=== PATIENT | male | born 1990 | race Caucasian/White ===

== ENCOUNTER 2017-09-21 21:42 | Inpatient (IN) ==
[2017-09-21] MEDS ORDERED: 0.9 % Sodium Chloride 1,000 ML IVC ONE (22:04)
[2017-09-21] MEDS ORDERED: Vancomycin 1,000 MG VIAL IVPB ONE (22:04)
[2017-09-21] MEDS ORDERED: *HR* HYDROmorphone (PF) 1 MG/ML SYRINGE IVP ONE (22:04)
[2017-09-21] MEDS ORDERED: ceFAZolin 1,000 MG in Water for inj. (sterile) 20 ML 10 ML IVP ONE (22:04)
--- NOTE | 2017-09-21 22:10 | Emergency Department Note ---
Disposition Clinical Impression: Tenosynovitis of fingers Abscess of skin or subcutaneous tissue Qualifiers: Site of cutaneous abscess: extremity Site of cutaneous abscess of extremity: hand Laterality: right Qualified Code(s): L02.511 - Cutaneous abscess of right hand Disposition: Still a Patient Condition: Fair Referrals: Rachel Pa MD [Primary Care Provider] - Forms: ED Satisfaction Letter Time of Disposition: 22:45 General Adult HPI - General Chief complaint: ED Skin/Abscess/Foreign Body Stated complaint: states shot of herion in rt hand, now has abscess Time Seen by Provider: 09/21/17 21:58 Source: patient Limitations: no limitations Nursing Notes Reviewed: Yes Vital Signs Reviewed: Yes - History of Present Illness HPI Narrative: History of present illness: 26-year-old male active heroin IV drug user who states he is ambidextrous, states he shot up on the dorsum of his right hand 2 days ago noticed he had swelling redness and pain with limited range of motion of his fingers. Feels like he has had low-grade fever or chills. He also noticed on his left bicipital area he had some firmness and redness but he upon repeated questioning says he has not shot up in that area. Patient says he has hepatitis C that was about 2 years ago is currently not taking any medicines and he tested negative for HIV. Denies chest pain or shortness of breath palpitations nausea vomiting chills diarrhea. Patient's pain is about a 6 or 7 out of 10. Pain Scale: 8 - Related Data Previous Rx's Medication Instructions Recorded Amoxicillin 875 mg PO BID #20 tablet 08/02/16 Ibuprofen [Motrin] 800 mg PO Q8HR PRN #30 tablet 08/02/16 Erythromycin OPTH Oint 0.5 inch LEFT EYE QID 7 Days tube 03/31/17 Mupirocin [Bactroban Oint] 1 appl TP BID 7 Days tube 03/31/17 Sulfamethoxazole/Trimeth DS 1 each PO BID #14 tablet 03/31/17 [Bactrim DS] Allergies Allergy/AdvReac Type Severity Reaction Status Date / Time Cefaclor [From [facility] Allergy See Verified 09/21/17 21:50 Comments All systems ED: reviewed and negative except as stated. Constitutional: Reports: fever, chills Musculoskeletal: Reports: arthralgia, myalgia (Pain in the dorsum of his right hand with swelling and decreased ability to flex his fingers or extend them) Past Medical History - Past Medical History Attestation: Yes The following information was validated with the patient. Source: patient Medical history: Reports: hepatitis (C) Psychiatric history: Reports: no psych history - Social History Smoking Status: Current every day smoker Smokeless Tobacco Status: No Alcohol use: Reports: none Drug use: Reports: opiates, IV Drug Use Physical Exam - General Limitations: no limitations General appearance: alert, in distress - Head Head exam: atraumatic, normocephalic - Eye Eye exam: Present: normal appearance, PERRL - ENT ENT exam: other (Teeth in poor state of generalized dental decay) - Neck Neck exam: Present: normal inspection, full ROM - Chest Chest inspection: Present: normal inspection, symmetric chest wall rise - Respiratory Respiratory exam: Present: normal lung sounds bilaterally - Cardiovascular Cardiovascular exam: Present: normal rhythm, tachycardia - Abdominal Exam Abdominal exam: Present: soft, Non-Tender - Extremities Exam Extremities exam: Present: tenderness (With erythema on the dorsum of the right hand over the entire dorsum of the right hand, and on the left distal anterior bicipital area with induration and erythema) - Expanded Upper Extremity Exam Shoulder exam: Present: normal inspection, full ROM Arm exam: Present: tenderness (Left bicep distally), erythema Elbow exam: Present: other (SMALL FURUNCLE ON LEFT ELBOW) Forearm/Wrist exam: Present: tenderness, swelling Hand exam: Present: tenderness, swelling, erythema, other (Fingers held in flexed position pain with either extension or flexion. Refill less than 2 seconds) Neurosensory exam: Normal: radial nerve, ulnar nerve - Expanded Lower Extremity Exam Gait: observed and normal - Neurological Exam Neurological exam: Present: alert, oriented X3 - Psychiatric Psychiatric exam: Present: normal mood, anxious - Skin Skin exam: Present: warm, dry, erythema Course - Reevaluation(s) Reevaluation #1: 26-year-old hepatitis C, actively IV drug using heroin dependent patient injected for smoked right hand 2 days ago and now has markedly swollen erythematous tender painful right hand with decreased significantly decreased ability to extend or flex the fingers. Examination concerning for acute Jeny synovitis secondary to heroin injection. And he has a cellulitic area in his distal anterior left bicep. Discussed the patient he will need ultrasound- guided IV he will need labs fluids medications and a CT of the upper extremity with likely hand specialty consultation and possibly washout in the operating room. Admission is highly likely or transferred. Patient understands this disposition pending. Patient does meet SIRS criteria. Providing 45 minutes of critical care services for this patient Time: 22:13 Reevaluation #2: The case with the evening team of Dr. Kimani Wall and Rajinder Chavez. They will assume care of this patient follow-up labs and imaging studies and arrange appropriate admission and/or transfer disposition. Patient so informed. Patient signed out in stable condition Time: 22:45 Vital Signs Temperature 100.6 F H 09/21/17 21:50 Pulse Rate 118 09/21/17 21:50 Respiratory Rate 20 09/21/17 21:50 Blood Pressure 147/65 09/21/17 21:50 O2 Sat by Pulse Oximetry 98 09/21/17 21:50 Temperature 100.6 F H 09/21/17 21:50 Pulse Rate 118 09/21/17 21:50 Respiratory Rate 20 09/21/17 21:50 Blood Pressure 147/65 09/21/17 21:50 O2 Sat by Pulse Oximetry 98 09/21/17 21:50 Oxygen Delivery Oxygen Delivery Room Air Medical Decision Making - Lab Data Result diagrams: 09/21/17 22:16 09/21/17 22:16 Lab Results 09/21/17 09/21/17 Range/Units 22:16 22:16 WBC 15.4 H (4.3-11.1) K/mcL RBC 5.46 (4.19-5.50) M/mcL Hgb 12.9 (12.9-16.9) g/dL Hct 40.5 (37.5-50.1) % MCV 74.2 L (83.0-100.0) fL MCH 23.6 L (28.0-33.3) pg MCHC 31.9 (31.6-35.5) g/dL RDW 13.9 (11.5-14.5) % Plt Count 226 (140-400) K/mcL MPV 9.1 L (9.4-12.4) fL Immature Gran % 0.4 (0-4) % Seg Neutrophils % 81.4 % Lymphocytes % 9.7 % Monocytes % 8.1 % Eosinophils % 0.1 % Basophils % 0.3 % Neutrophils # 12.5 H (1.6-8.9) K/mcL Lymphocytes # 1.5 (0.6-4.6) K/mcL Monocytes # 1.3 (0.0-1.3) K/mcL Eosinophils # 0.0 (0.0-0.6) K/mcL Basophils # 0.0 (0.0-0.2) K/mcL Sodium 129 L (136-145) mEq/L Potassium 3.8 (3.5-5.1) mEq/L Chloride 96 L (98-107) mEq/L Carbon Dioxide 26 (23-29) mEq/L BUN 9 (6-20) mg/dL Creatinine 0.86 (0.70-1.30) mg/dL Est GFR ( Amer) > 60 (> 60) Est GFR (Non-Af Amer) > 60 (> 60) BUN/Creatinine Ratio 10 (6-26) Glucose 142 H (70-105) mg/dL Calculated Osmolality 269 L (280-300) Calcium 9.1 (8.6-10.3) mg/dL
[2017-09-21 22:26] LABS: Basophils % 0.3 %; Eosinophils % 0.1 %; Hematocrit 40.5 % (37.5-50.1); Hemoglobin 12.9 g/dL (12.9-16.9); Immature Granulocytes % 0.4 % (0-4); Lymphocytes % 9.7 %; Mean Corpuscular HGB Conc 31.9 g/dL (31.6-35.5); Mean Corpuscular Hemoglobin 23.6 pg (28.0-33.3); Mean Corpuscular Volume 74.2 fL (83.0-100.0); Mean Platelet Volume 9.1 fL (9.4-12.4); Monocytes % 8.1 %; Platelet Count 226 K/mcL (140-400); Red Blood Count 5.46 M/mcL (4.19-5.50); Red Cell Distribution Width 13.9 % (11.5-14.5); Segmented Neutrophils % 81.4 %
[2017-09-21 22:27] LABS: Lymphocytes # 1.5 K/mcL (0.6-4.6); Monocytes # 1.3 K/mcL (0.0-1.3); Neutrophils # 12.5 K/mcL (1.6-8.9)
[2017-09-21 22:44] LABS: BUN/Creatinine Ratio 10 (6-26); Blood Urea Nitrogen 9 mg/dL (6-20); Calcium 9.1 mg/dL (8.6-10.3); Carbon Dioxide 26 mEq/L (23-29); Chloride 96 mEq/L (98-107); Glucose 142 mg/dL (70-105); Osmolality,Calculated 269 (280-300); Potassium 3.8 mEq/L (3.5-5.1); Sodium 129 mEq/L (136-145); eGFR For African Americans > 60 (> 60); eGFR For Non-African Americans > 60 (> 60)
[2017-09-21] MEDS ORDERED: CloNIDine Patch 0.3 MG PATCH (WEEKLY) TD STA (22:53)
[2017-09-21] MEDS ORDERED: Vancomycin 1,000 MG in D5% in Water 250 ML IVPB ONE (23:20)
[2017-09-21] MEDS ORDERED: D5% in Water 250 ML ONE (23:45)
[2017-09-22] MEDS ORDERED: *HR* HYDROmorphone (PF) 1 MG/ML SYRINGE IVP ONE (01:22)
--- NOTE | 2017-09-22 02:02 | Emergency Department Note ---
Disposition Clinical Impression: Cellulitis of arm Qualifiers: Laterality: right Qualified Code(s): L03.113 - Cellulitis of right upper limb Disposition: Admitted As Inpatient Condition: Fair Referrals: Rachel Pa MD [Primary Care Provider] - Forms: ED Satisfaction Letter Time of Disposition: 02:03 Skin/Abscess/FB HPI Chief complaint: ED Skin/Abscess/Foreign Body Stated complaint: states shot of herion in rt hand, now has abscess Time Seen by Provider: 09/21/17 21:58 Source: patient Limitations: no limitations Nursing Notes Reviewed: Yes Vital Signs Reviewed: Yes HPI Narrative: 26-year-old male presented with cellulitis and arm pain on the left side. This is a handoff from the day team for full history and physical please refer to Dr. Diamond's note. Previous Rx's Medication Instructions Recorded Amoxicillin 875 mg PO BID #20 tablet 08/02/16 Ibuprofen [Motrin] 800 mg PO Q8HR PRN #30 tablet 08/02/16 Erythromycin OPTH Oint 0.5 inch LEFT EYE QID 7 Days tube 03/31/17 Mupirocin [Bactroban Oint] 1 appl TP BID 7 Days tube 03/31/17 Sulfamethoxazole/Trimeth DS 1 each PO BID #14 tablet 03/31/17 [Bactrim DS] Allergies Allergy/AdvReac Type Severity Reaction Status Date / Time Cefaclor [From [facility]] Allergy See Verified 09/21/17 21:50 Comments Review of Systems: 10 point review of systems done and negative unless otherwise stated in history of present illness. All systems ED: reviewed and negative except as stated. Review of Systems: As Per HPI Constitutional: Reports: fever, chills Musculoskeletal: Reports: arthralgia, myalgia (Pain in the dorsum of his right hand with swelling and decreased ability to flex his fingers or extend them) Past Medical History - Past Medical History Attestation: Yes The following information was validated with the patient. Medical history: Reports: hepatitis (C) Psychiatric history: Reports: no psych history - Social History Smoking Status: Current every day smoker Smokeless Tobacco Status: No Alcohol use: Reports: none Drug use: Reports: opiates, IV Drug Use Physical Exam - General Limitations: no limitations General appearance: alert, in distress - Head Head exam: atraumatic, normocephalic, normal inspection - Chest Chest inspection: Present: normal inspection, symmetric chest wall rise - Respiratory Respiratory exam: Present: normal lung sounds bilaterally - Cardiovascular Cardiovascular exam: Present: regular rate, normal rhythm, normal heart sounds - Abdominal Exam Abdominal exam: Present: soft, Non-Tender. Absent: tenderness, distention, guarding, rebound, rigidity - Expanded Upper Extremity Exam Forearm/Wrist exam: Present: normal inspection, full ROM, tenderness, swelling, erythema Vascular exam: Normal: capillary refill, radial pulse - Expanded Lower Extremity Exam Neurovascular/Tendon exam: Absent: motor deficit, sensory deficit, tendon deficit - Back Exam Back exam: Present: normal inspection, full ROM. Absent: tenderness - Neurological Exam Neurological exam: Present: alert, oriented X3 - Skin Skin exam: Present: warm, dry, intact, normal color Course Course Narrative: 26-year-old male presented with left arm pain and swelling to the hand off pending CT of left hand be sure is not tenosynovitis that needed transfer to [place] for hand specialty. He is referred to Dr. Diamond's note for full history and physical Vital Signs Temperature 100.6 F H 09/21/17 21:50 Pulse Rate 118 09/21/17 21:50 Respiratory Rate 20 09/21/17 21:50 Blood Pressure 147/65 09/21/17 21:50 O2 Sat by Pulse Oximetry 98 09/21/17 21:50 Temperature 100.6 F H 09/21/17 21:50 Pulse Rate 102 09/22/17 01:13 Respiratory Rate 16 09/22/17 01:13 Blood Pressure 112/68 09/22/17 01:13 O2 Sat by Pulse Oximetry 98 09/22/17 01:13 Oxygen Delivery Oxygen Delivery Room Air Skin/Abscess/Foreign Body - [facility] Narrative Medical decision making narrative: 26-year-old male presented to the emergency department with left hand pain and swelling he is an IV drug abuser for history and physical please refer to Dr. Diamond's note. CT did come back showing only a cellulitis there was no osteomyelitis or any other tendon involvement. No signs of any tenosynovitis. Due to this refilled the patient can be admitted here. Vancomycin and Ancef were given. Patient was given another dose of Dilaudid for pain control. Patient was admitted to the hospitalist service I spoke with Dr. Casas who agreed to admit the patient. Patient is admitted in stable condition. Upper Extremity CT 09/21/17 22:15 IMPRESSION: Findings are most compatible with cellulitis involving the distal aspect of the right forearm and hand. No focal fluid collections are identified. No CT evidence of osteomyelitis is identified. D/ / Ace Vital MD / Ace Vital MD Interpreting Provider: Ace Vital MD - Lab Data Result diagrams: 09/21/17 22:16 09/21/17 22:16 Lab Results 09/21/17 09/21/17 Range/Units 22:16 22:16 WBC 15.4 H (4.3-11.1) K/mcL RBC 5.46 (4.19-5.50) M/mcL Hgb 12.9 (12.9-16.9) g/dL Hct 40.5 (37.5-50.1) % MCV 74.2 L (83.0-100.0) fL MCH 23.6 L (28.0-33.3) pg MCHC 31.9 (31.6-35.5) g/dL RDW 13.9 (11.5-14.5) % Plt Count 226 (140-400) K/mcL MPV 9.1 L (9.4-12.4) fL Immature Gran % 0.4 (0-4) % Seg Neutrophils % 81.4 % Lymphocytes % 9.7 % Monocytes % 8.1 % Eosinophils % 0.1 % Basophils % 0.3 % Neutrophils # 12.5 H (1.6-8.9) K/mcL Lymphocytes # 1.5 (0.6-4.6) K/mcL Monocytes # 1.3 (0.0-1.3) K/mcL Eosinophils # 0.0 (0.0-0.6) K/mcL Basophils # 0.0 (0.0-0.2) K/mcL Sodium 129 L (136-145) mEq/L Potassium 3.8 (3.5-5.1) mEq/L Chloride 96 L (98-107) mEq/L Carbon Dioxide 26 (23-29) mEq/L BUN 9 (6-20) mg/dL Creatinine 0.86 (0.70-1.30) mg/dL Est GFR ( Amer) > 60 (> 60) Est GFR (Non-Af Amer) > 60 (> 60) BUN/Creatinine Ratio 10 (6-26) Glucose 142 H (70-105) mg/dL Calculated Osmolality 269 L (280-300) Calcium 9.1 (8.6-10.3) mg/dL Attestation Statement - Attestation Attestation: I, Rajinder Chavez MD, personally evaluated this patient and discussed their management with the resident physician. I reviewed the resident's note and agree with the documented findings, medical decision making, and plan of care. This patient was signed out at shift change from Dr. Diamond. Please refer to his note for complete details of the history and physical examination. Patient has a history of IV drug abuse and presented with infection of the right hand secondary to injecting himself in the hand. At shift change patient is awaiting labs and CT. He has received IV antibiotics. He has also received Dilaudid for pain. Labs reviewed. Leukocytosis. CT showed cellulitis of the hand and distal forearm with no evidence of abscess or osteomyelitis. The hospitalist, Dr. Casas, was consulted and accepted admission of the patient.
[2017-09-22] MEDS ORDERED: *HR* HYDROmorphone (PF) 1 MG/ML SYRINGE IVP PRN (08:17)
[2017-09-22] MEDS ORDERED: Acetaminophen 325 MG TABLET PO PRN (08:17)
--- NOTE | 2017-09-22 08:23 | Internal Med History&Physical ---
Date of Encounter: 09/22/17 Time of Encounter: 08:21 Assessment and Plan (1) Cellulitis of right hand Current visit: Yes Status: Acute Injection site cellulitis. There is decrease flexion and extension movement of the fingers, and therefore concerning for tenosynovitis. Consult orthopedic surgery. Start the patient on vancomycin aztreonam and flagyl. Patient is allergic to cephalosporins as well as penicillins in the form of hives. will give opiates for pain control. (2) Sepsis Current visit: Yes Status: Acute Patient is great year for sepsis check lactic acid. check blood cultures Qualifiers: Qualified Code(s): A41.9 - Sepsis, unspecified organism (3) IVDU (intravenous drug user) Current visit: Yes Status: Acute Patient injects heroin every day. History of hepatitis C virus. Internal Medicine - H&P: HPI Chief complaint: right arm swelling and pain History of present illness: Mr. Cowan is a 26 year old male patient who is an IV drug abuser, injects heroin every day presents to the emergency room yesterday with right hand pain and swelling. Patient mentions that 2 days ago he started experiencing pain warmth tenderness and swelling of the right hand. He also noticed difficulty in flexion and extension movements of the fingers. He has been having fevers and chills up to 100.8 in our hospital. Patient was started on IV antibiotics and emergency room notices some improvement in his symptoms. Past Med Surg Social Fam HX - Past Medical History Medical history: hepatitis Psychiatric history: no psych history - Social History Smoking Status: Current every day smoker Smokeless Tobacco Status: No Alcohol use: none Drug use: opiates, IV Drug Use - Family History Mother History Unknown: Yes Name: Ivet Hager Living Status: Still Living Internal Medicine - H&P: Meds Amoxicillin 875 mg PO BID #20 tablet 08/02/16 [Rx] Ibuprofen [Motrin] 800 mg PO Q8HR PRN #30 tablet 08/02/16 [Rx] Erythromycin OPTH Oint 0.5 inch LEFT EYE QID 7 Days tube 03/31/17 [Rx] Mupirocin [Bactroban Oint] 1 appl TP BID 7 Days tube 03/31/17 [Rx] Sulfamethoxazole/Trimeth DS [Bactrim DS] 1 each PO BID #14 tablet 03/31/17 [Rx] 3 Allergy/AdvReac Type Severity Reaction Status Date / Time Cefaclor [From [facility]] Allergy See Verified 09/21/17 21:50 Comments All Systems PM: A 10-system review of systems was performed and is negative for pertinent findings except as documented above in the HPI. Review of systems: 10 point review systems is negative except for HPI - Constitutional Vitals: Temp Pulse Resp BP Pulse Ox 100.8 F H 97 15 119/66 99 09/22/17 07:07 09/22/17 07:07 09/22/17 07:07 09/22/17 07:07 09/22/17 07:07 Exam: Gen.: patient is alert oriented times 3 not in distress. Cardiac: normal S1 S2 no additional sounds are murmurs. Chest: clear to auscultation. Abdomen: soft nontender nondistended. Lower extremity no swelling mucous membranes: moist Hand: swelling, redness, warmth and tenderness in dorsum of right hand with decreased flexion and extension of fingers. Pulsations and capillary circulation intact. Internal Med - H&P Results - Labs CBC & Chem 7: 09/21/17 22:16 09/21/17 22:16
[2017-09-22] MEDS ORDERED: 0.9 % Sodium Chloride 1,000 ML IVC SCH (08:30)
[2017-09-22] MEDS ORDERED: Vancomycin 1,250 MG in D5% in Water 250 ML IVPB SCH ×2 (09:00→12:00)
[2017-09-22] MEDS ORDERED: Famotidine 20 MG TABLET PO SCH (09:00)
[2017-09-22 09:43] LABS: Basophils % 0.3 %; Hemoglobin 12.9 g/dL (12.9-16.9); Immature Granulocytes % 0.5 % (0-4); Immature Platelets 1.7 % (1.1-6.1); Lymphocytes # 1.9 K/mcL (0.6-4.6); Lymphocytes % 12.4 %; Mean Corpuscular HGB Conc 31.5 g/dL (31.6-35.5); Mean Corpuscular Hemoglobin 23.3 pg (28.0-33.3); Mean Platelet Volume 9.2 fL (9.4-12.4); Monocytes # 1.4 K/mcL (0.0-1.3); Monocytes % 9.2 %; Neutrophils # 11.8 K/mcL (1.6-8.9); Platelet Count 234 K/mcL (140-400); Red Blood Count 5.54 M/mcL (4.19-5.50); Red Cell Distribution Width 13.8 % (11.5-14.5); Segmented Neutrophils % 77.6 %
[2017-09-22] MEDS ORDERED: Ondansetron 4 MG/2 ML VIAL IVP PRN (09:51)
[2017-09-22 09:55] LABS: BUN/Creatinine Ratio 10 (6-26); Blood Urea Nitrogen 8 mg/dL (6-20); Carbon Dioxide 25 mEq/L (23-29); Chloride 99 mEq/L (98-107); Potassium 3.7 mEq/L (3.5-5.1); Sodium 133 mEq/L (136-145); eGFR For African Americans > 60 (> 60)
[2017-09-22 09:56] LABS: C-Reactive Protein 201 mg/L (Less than 10); Calcium 9.2 mg/dL (8.6-10.3); Glucose 107 mg/dL (70-105); Magnesium 2.1 mg/dL (1.6-2.6); Osmolality,Calculated 275 (280-300); eGFR For Non-African Americans > 60 (> 60)
[2017-09-22 11:08] VITALS: BP 116/70
[2017-09-22] MEDS ORDERED: *HR* Heparin 5,000 UNIT/ML VIAL SQ SCH (14:00)
[2017-09-22] MEDS ORDERED: Aminoglycoside Consult 1 EACH MC ONE (14:15)
[2017-09-22] MEDS ORDERED: Aztreonam 1,000 MG in Water for inj. (sterile) 20 ML 10 ML IVP SCH (16:00)
[2017-09-22] MEDS ORDERED: MetroNIDAZOLE 500 MG/100 ML 500 MG/100 ML BAG IVPB SCH (16:00)
[2017-09-23 00:22] LABS: Enterococcus by PCR Not Detected (Not Detect); Staphylococcus aureus by PCR Not Detected (Not Detect); Streptococcus by PCR ***DETECTED*** (Not Detect); blaKPC Carbapenem-Resist Gene Not Detected (Not Detect); mecA Methicillin-Resist Gene Not Detected (Not Detect); vanA/B Vancomycin-Resist Genes Not Detected (Not Detect)
[2017-09-23 00:23] LABS: Acinetobacter baumannii by PCR Not Detected (Not Detect); Candida albicans by PCR Not Detected (Not Detect); Candida glabrata by PCR Not Detected (Not Detect); Candida krusei by PCR Not Detected (Not Detect); Candida parapsilosis by PCR Not Detected (Not Detect); Candida tropicalis by PCR Not Detected (Not Detect); Escherichia coli by PCR Not Detected (Not Detect); Klebsiella oxytoca by PCR Not Detected (Not Detect); Klebsiella pneumoniae by PCR Not Detected (Not Detect); Pseudomonas aeruginosa by PCR Not Detected (Not Detect); Serratia marcescens by PCR Not Detected (Not Detect); Streptococcus agalactiae(B)PCR Not Detected (Not Detect); Streptococcus pneumoniae PCR Not Detected (Not Detect); Streptococcus pyogenes (A) PCR ***DETECTED*** (Not Detect)
[2017-09-23 20:50] LABS: Acinetobacter baumannii by PCR Not Detected (Not Detect); Candida albicans by PCR Not Detected (Not Detect); Candida glabrata by PCR Not Detected (Not Detect); Candida krusei by PCR Not Detected (Not Detect); Candida parapsilosis by PCR Not Detected (Not Detect); Candida tropicalis by PCR Not Detected (Not Detect); Enterococcus by PCR Not Detected (Not Detect); Escherichia coli by PCR Not Detected (Not Detect); Klebsiella oxytoca by PCR Not Detected (Not Detect); Klebsiella pneumoniae by PCR Not Detected (Not Detect); Pseudomonas aeruginosa by PCR Not Detected (Not Detect); Serratia marcescens by PCR Not Detected (Not Detect); Staphylococcus aureus by PCR Not Detected (Not Detect); Streptococcus agalactiae(B)PCR Not Detected (Not Detect); Streptococcus by PCR ***DETECTED*** (Not Detect); Streptococcus pneumoniae PCR Not Detected (Not Detect); Streptococcus pyogenes (A) PCR ***DETECTED*** (Not Detect); blaKPC Carbapenem-Resist Gene Not Detected (Not Detect); mecA Methicillin-Resist Gene Not Detected (Not Detect); vanA/B Vancomycin-Resist Genes Not Detected (Not Detect)
--- NOTE | 2017-09-23 20:54 | Event Note ---
Date of Encounter: 09/23/17 Time of Encounter: 20:51 Contacted by lab that patient has positive blood culture from this morning - Strep A. Appears patient has been discharged from hospital (left AMA?). I attempted to call patient but the cell phone number we have on file has been disconnected. Will attempt to send letter in AM.
== END 2017-09-22 14:16 | disposition left against medical advice (07) | DRG 720 ==
LOC: EMEROO 21:42 → 3ANU 21:42
PROVIDERS: ADMIT Hospitalist; ATTEND Hospitalist